=== PATIENT | male | born 1970 | race African-American/Black ===

== ENCOUNTER 2016-06-17 00:59 | Emergency (ER) | payer MEDICARE, MEDICAID ==
[~2016-06-17] VITALS: Ht 170.2 cm; Wt 137.0 kg
[2016-06-17] MEDS ORDERED: ACETAMINOPHEN 325MG TABLET PO ONE (03:45)
[2016-06-17 04:30] VITALS: BP 123/79
== END 2016-06-17 05:16 | disposition home or self-care (01) ==
LOC: ER 01:00
DX: M79.671 Pain in right foot (principal); M79.672 Pain in left foot; F17.210 Nicotine dependence, cigarettes, uncomplicated; F20.9 Schizophrenia, unspecified; Z90.49 Acquired absence of other specified parts of digestive tract
CPT/HCPCS: 99282